=== PATIENT | female | born 1950 | race Caucasian/White ===

== ENCOUNTER 2021-08-27 10:25 | Emergency (ER) | payer MEDICARE, MEDICAID ==
[~2021-08-27] VITALS: Ht 167.6 cm; Wt 74.0 kg
--- NOTE | 2021-08-27 10:42 | PHYS DOC ---
Adult General HPI HPI Patient is a 71-year-old female presenting for dizziness. Onset was 26 hours prior to arrival without any known ingestion, trauma, ingestion or other exposure. Nothing known makes better or worse. She was passenger of a vehicle when she started feeling dizzy, describes it as just her head feels full and congested. Does admit recent URI symptoms, has had nasal congestion, rhinorrhea, postnasal drip and diarrhea. She has not had any fever, she is not vaccinated against COVID-19, denies any sick contacts and has not been tested for COVID-19 recently. She does have several risk factors for CVA such as uncontrolled type 2 diabetes but has no history of CAD or CVA. Presents today due to ongoing symptoms and concern for stroke Review of Systems Review of Systems Fourteen body systems of review of systems have been reviewed. See HPI for pertinent positives and negative responses, other guardado all other systems are negative, non-pertinent or non-contributory Physical Exam Physical Exam Constitutional: Well developed, well nourished, no acute distress, non-toxic appearance. HENT: Normocephalic, atraumatic, bilateral external ears normal, fluid present behind bilateral TMs without any obvious signs of infection such as loss of cone of light injection erythema or significant bulging, oropharynx moist with poor dentition globally and numerous missing teeth and postnasal drip present, no oral exudates, nose normal. Eyes: PERRLA, EOMI, conjunctiva normal, no discharge. Neck: Normal range of motion, no tenderness, supple, no stridor. Cardiovascular: Heart rate regular, sinus rhythm, no murmurs rubs or gallops Lungs & Thorax: Bilateral breath sounds clear to auscultation Abdomen: Bowel sounds normal, soft, no tenderness, no masses, no pulsatile masses. Nonsurgical abdomen, no peritoneal signs Skin: Warm, dry, no erythema, no rash. Back: No tenderness, no CVA tenderness. Extremities: No tenderness, no cyanosis, no clubbing, ROM intact, no edema. Neurologic: Alert and oriented X 3, cranial nerves II through XII intact, normal motor & sensory function, no focal deficits noted. Psychologic: Affect normal, judgement normal, mood normal. Current Patient Data Vital Signs Vital Signs Date Time Temp Pulse Resp B/P (MAP) Pulse Ox O2 Delivery O2 Flow Rate FiO2 10/14/21 10:39 97.9 85 16 149/70 (96) 98 Room Air Vital Signs Date Time Temp Pulse Resp B/P (MAP) Pulse Ox O2 Delivery O2 Flow Rate FiO2 08/27/21 10:39 97.9 85 16 149/70 (96) 98 Room Air Lab Results Laboratory Tests Test 08/27/21 11:22 White Blood Count 4.5 x10^3/uL Red Blood Count 4.32 x10^6/uL Hemoglobin 12.4 g/dL Hematocrit 38.5 % Mean Corpuscular Volume 89 fL Mean Corpuscular Hemoglobin 29 pg Mean Corpuscular Hemoglobin Concent 32 g/dL Red Cell Distribution Width 15.7 % Platelet Count 186 x10^3/uL Neutrophils (%) (Auto) 73 % Lymphocytes (%) (Auto) 18 % Monocytes (%) (Auto) 6 % Eosinophils (%) (Auto) 4 % Basophils (%) (Auto) 1 % Neutrophils # (Auto) 3.3 x10^3uL Lymphocytes # (Auto) 0.8 x10^3/uL Monocytes # (Auto) 0.2 x10^3/uL Eosinophils # (Auto) 0.2 x10^3/uL Basophils # (Auto) 0.0 x10^3/uL Sodium Level 138 mmol/L Potassium Level 3.5 mmol/L Chloride Level 101 mmol/L Carbon Dioxide Level 26 mmol/L Anion Gap 11 Blood Urea Nitrogen 13 mg/dL Creatinine 0.8 mg/dL Estimated GFR (Cockcroft-Gault) 70.3 BUN/Creatinine Ratio 16 Glucose Level 209 mg/dL Calcium Level 8.7 mg/dL Total Bilirubin 0.3 mg/dL Aspartate Amino Transf (AST/SGOT) 15 U/L Alanine Aminotransferase (ALT/SGPT) 19 U/L Alkaline Phosphatase 140 U/L Troponin I Quantitative < 0.017 ng/mL Total Protein 6.9 g/dL Albumin 3.1 g/dL Albumin/Globulin Ratio 0.8 EKG EKG EKG ordered and interpreted by myself at 1119 hrs. as sinus rhythm at 71 bpm, unremarkable intervals, no axis deviation, no acute ischemic findings, no STEMI Radiology/Procedures Radiology/Procedures EXAM: CHEST ONE VIEW. HISTORY: Dizziness. COMPARISON: None. FINDINGS: A frontal view of the chest is obtained. There are no confluent infiltrates. There is a calcified granuloma on the right. There is no pneumothorax or pleural effusion. The heart is not enlarged. IMPRESSION: 1. No confluent infiltrates. Electronically signed by: Meño Bradford MD (08/27/2021 11:21 AM) [id number] /////////////////////////////// EXAM: CT HEAD WITHOUT CONTRAST. HISTORY: Dizziness. TECHNIQUE: Computed tomography of the head was performed without intravenous contrast. One or more of the following individualized dose reduction techniques were utilized for this examination: 1. Automated exposure control. 2. Adjustment of the mA and/or kV according to patient size. 3. Use of iterative reconstruction technique. COMPARISON: None. FINDINGS: There is no intracranial hemorrhage. Hypoattenuation within the periventricular white matter indicates mild chronic microangiopathic change. Prominence of the lateral ventricles and hemispheric sulci indicates mild atrophy. The visualized paranasal sinuses appear clear. The orbits are unremarkable. The temporal bones are unremarkable. The calvarium reveals no suspicious lesions. IMPRESSION: 1. No acute intracranial findings. 2. Mild atrophy and chronic microangiopathic white matter change. Electronically signed by: Meño Bradford MD (08/27/2021 11:23 AM) [id number] Heart Score C/O Chest Pain: No HEART Score for Chest Pain: HEART Score for Chest Pain Response (Comments) Value History Slighlty/Non-Suspicious 0 ECG Normal 0 Age > 65 2 Risk Factors >3 Risk Factors or Hx CAD 2 Troponin < Normal Limit 0 Total 4 Risk Factors: Risk Factors: DM, Current or recent (<one month) smoker, HTN, HLP, family history of CAD, obesity. Risk Scores: Risk Factors: DM, Current or recent (<one month) smoker, HTN, HLP, family history of CAD, obesity. Course & Med Decision Making Course & Med Decision Making ABCs unremarkable. I disclosed entirety of ER findings and discussed most likely diagnosis of dizziness, likely related to viral labrynthitis. Other diagnoses were discussed with patient such as vertigo, ACS, ischemic stroke and other potential emergencies but all deemed less likely causes of patient's presentation. Plan of care discussed at length with need for close outpatient follow-up to review today's ER visit stressed. Strict return precautions were also discussed at length with good understanding verbalized by patient. Patient voiced understanding and agreement with the plan. Patient knows to come back for repeat evaluation if concerning signs or symptoms present prior to outpatient follow-up. Hemodynamically stable, ambulatory and well-appearing at time of disposition. Dragon Disclaimer Dragon Disclaimer This electronic medical record was generated, in whole or in part, using a voice recognition dictation system. NIH Stroke Scale: NIH Stroke Scale Response (Comments) Value Level of Consciousness: 0 Alert/Responsive 0 LOC Questions: 0 Answers both correctly 0 LOC Commands: 0 Performs both tasks 0 Best Gaze: 0 Normal 0 Visual: 0 No visual loss 0 Facial Palsy: 0 Normal, symmetrical 0 Motor - Left Arm 0 No drift 0 Motor - Right Arm 0 No drift 0 Motor - Left Leg 0 No drift 0 Motor: Right Leg 0 No drift 0 Limb Ataxia: 0 Absent 0 Sensory: 0 No loss 0 Best Language: 0 Normal 0 Dysathria: 0 Normal 0 Extinction and Inattention: 0 Normal 0 Total 0 Departure Departure: Impression: Primary Impression: Dizziness Additional Impressions: Viral syndrome Person under investigation for COVID-19 Referrals: MONIKA MARTIN MD (PCP) Additional Instructions: You were seen for dizziness. You should make sure to drink plenty of fluids. I t is unclear what caused your symptoms but your initial evaluation did not show any concerning symptoms or features. As disclosed, you are likely suffering from a viral syndrome inserted, especially because you are not vaccinated against COVID-19 you were tested with results pending. You should be notified of your results within the next 24 hours. In addition, such viral illness could cause your dizziness, this is called late bronchitis. Treatment of this is supportive, as disclosed you should take an antihistamine/daily allergy pill and consider use of intranasal spray such as Flonase or Afrin. Return to the ED immediately if you develop worsening symptoms, chest pain, shortness of breath, numbness, tingling, weakness, vision change, or any other new or concerning symptoms. You should follow up with your primary care doctor and potentially a neurologist in a few days to have your labs repeated and to be evaluated again. Problem Qualifiers SHANE BOWDEN DO Aug 27, 2021 10:42
--- NOTE | 2021-08-27 11:24 | RAD ---
EXAM: CHEST ONE VIEW. HISTORY: Dizziness. COMPARISON: None. FINDINGS: A frontal view of the chest is obtained. There are no confluent infiltrates. There is a calcified granuloma on the right. There is no pneumoth orax or pleural effusion. The heart is not enlarged. IMPRESSION: 1. No confluent infiltrates. Electronically signed by: Meño Bradford MD (08/27/2021 11:21 AM) [id number]
--- NOTE | 2021-08-27 11:26 | RAD ---
EXAM: CT HEAD WITHOUT CONTRAST. HISTORY: Dizziness. TECHNIQUE: Computed tomography of the head was performed without intravenous contrast. One or more of the following individualized dose reduction techniques were utilized for this examination: 1. Automated exposure control. 2. Adjustment of the mA and/or kV according to patient size. 3. Use of iterative reconstruction technique. COMPARISON: None. FINDINGS: There is no intracranial hemorrhage. Hypoattenuation within the periventricular white matte r indicates mild chronic microangiopathic change. Prominence of the lateral ventricles and hemispheri c sulci indicates mild atrophy. The visualized paranasal sinuses appear clear. The orbits are unremarkable. The temporal bones are un remarkable. The calvarium reveals no suspicious lesions. IMPRESSION: 1. No acute intracranial findings. 2. Mild atrophy and chronic microangiopathic white matter change. Electronically signed by: Meño Bradford MD (08/27/2021 11:23 AM) [id number]
[2021-08-27 11:34] VITALS: BP 123/78
[2021-08-27 11:44] LABS: BASO % 1 % (0-3); EOS # 0.2 x10^3/uL (0.0-0.7); EOS % 4 % (0-3); HEMATOCRIT 38.5 % (36.0-47.0); HEMOGLOBIN 12.4 g/dL (12.0-15.5); LYMPH # 0.8 x10^3/uL (1.0-4.8); LYMPH % 18 % (24-48); MEAN CORPUSCULAR HEMOGLOBIN 29 pg (25-35); MEAN CORPUSCULAR HGB CONC 32 g/dL (31-37); MEAN CORPUSCULAR VOLUME 89 fL (79-100); MONO # 0.2 x10^3/uL (0.0-1.1); MONO % 6 % (0-9); NEUT # 3.3 x10^3uL (1.8-7.7); NEUT % 73 % (31-73); PLATELET COUNT 186 x10^3/uL (140-400); RED BLOOD COUNT 4.32 x10^6/uL (3.50-5.40); RED CELL DISTRIBUTION WIDTH 15.7 % (11.5-14.5); WHITE BLOOD COUNT 4.5 x10^3/uL (4.0-11.0)
[2021-08-27 12:00] LABS: CALCIUM 8.7 mg/dL (8.5-10.1); CREATININE 0.8 mg/dL (0.6-1.0); GFR 70.3; POTASSIUM 3.5 mmol/L (3.5-5.1)
[2021-08-27 12:04] LABS: ALBUMIN 3.1 g/dL (3.4-5.0); ALBUMIN/GLOBULIN RATIO 0.8 (1.0-1.7); TOTAL BILIRUBIN 0.3 mg/dL (0.2-1.0); TOTAL PROTEIN 6.9 g/dL (6.4-8.2)
--- NOTE | 2021-08-27 13:54 | EKG ---
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
== END 2021-08-27 12:33 | disposition home or self-care (01) ==
LOC: ER 10:25
DX: R42 Dizziness and giddiness (principal); B34.9 Viral infection, unspecified; Z20.822 Contact with and (suspected) exposure to COVID-19
CPT/HCPCS: 36415; 70450; 71045; 80053; 84484; 85025; 93005; 99284; C9803; U0003

== ENCOUNTER 2021-12-13 18:58 | Emergency (ER) | payer OTHER, MEDICAID ==
[~2021-12-13] VITALS: Ht 167.6 cm; Wt 74.0 kg
[2021-12-13 19:15] VITALS: BP 133/70
--- NOTE | 2021-12-13 19:44 | PHYS DOC ---
Past History Past Surgical History: Other Additional Past Surgical Histo: hip (ИРИНА SPARROW APRN) Alcohol Use: None (ИРИНА SPARROW APRN) General Adult EDM: Chief Complaint: ABDOMINAL PAIN HPI: HPI: Patient is a 71-year-old female who presents to the emergency department for right upper quadrant pain that is been intermittent since this morning. She rates it 9 out of 10. She has been taking Tylenol. The pain does not radiate. She is also reporting diarrhea. She denies any nausea, vomiting, bloody stools, urinary symptoms, fevers. She has a history of hypertension, diabetes and kidney stones. (ИРИНА SPARROW APRN) Review of Systems: Review of Systems: Constitutional: negative unless reported in HPI Eyes: negative unless reported in HPI HENT: negative unless reported in HPI Respiratory: negative unless reported in HPI Cardiovascular: negative unless reported in HPI GI: negative unless reported in HPI : negative unless reported in HPI Musculoskeletal: negative unless reported in HPI Integument: negative unless reported in HPI Neurologic: negative unless reported in HPI Endocrine: negative unless reported in HPI Lymphatic: negative unless reported in HPI Psychiatric: negative unless reported in HPI (ИРИНА SPARROW APRN) Current Medications: Current Meds: Current Medications Medications (Trade) Dose Ordered Sig/Vianey Start Time Stop Time Status Last Admin Dose Admin Fentanyl Citrate (Fentanyl 2ml Vial) 50 mcg 1X ONCE 12/13/21 20:00 12/13/21 20:01 Iohexol (Omnipaque 300 Mg/ml) 75 ml 1X ONCE 12/13/21 20:00 12/13/21 20:01 Sodium Chloride 1,000 ml @ 1,000 mls/hr Q1H 12/13/21 20:00 12/13/21 20:59 (ИРИНА SPARROW APRN) Allergies: Allergies: Allergies Coded Allergies Type Severity Reaction Last Updated Verified No Known Drug Allergies 12/13/21 No (ИРИНА SPARROW APRN) Physical Exam: PE: Constitutional: Well developed, well nourished, no acute distress, non-toxic appearance. [] HENT: Normocephalic, atraumatic, bilateral external ears normal, oropharynx moist, no oral exudates, nose normal. [] Eyes: PERRL, EOMI, conjunctiva normal, no discharge. [] Neck: Normal range of motion, no stridor Cardiovascular:Heart rate regular rhythm, no murmur [] Lungs & Thorax: Bilateral breath sounds clear to auscultation [] Abdomen: Bowel sounds normal, soft, right upper quadrant and epigastric tenderness with palpation, obese abdomen, no rigidity or rebound tenderness, no guarding no masses, no pulsatile masses. [] Skin: Warm, dry, no erythema, no rash. [] Back: No tenderness, no CVA tenderness. [] Extremities: No tenderness, no cyanosis, no clubbing, ROM intact, no edema. [] Neurologic: Alert and oriented X 3, normal motor function, normal sensory function, no focal deficits noted. [] Psychologic: Affect normal, judgement normal, mood normal. [] (ИРИНА SPARROW APRN) Current Patient Data: Labs: Laboratory Tests Test 12/13/21 19:50 12/13/21 20:40 Urine Collection Type Clean catch Urine Color Yellow Urine Clarity Clear Urine pH 5.5 Urine Specific [place] 1.020 Urine Protein Neg Urine Glucose (UA) >=1000 mg/dL Urine Ketones (Stick) Trace mg/dL Urine Blood Neg Urine Nitrite Neg Urine Bilirubin Neg Urine Urobilinogen Dipstick 0.2 mg/dL Urine Leukocyte Esterase Neg Urine RBC 0 /HPF Urine WBC 0 /HPF Urine Squamous Epithelial Cells Few /LPF Urine Bacteria 0 /HPF White Blood Count 4.2 x10^3/uL Red Blood Count 4.16 x10^6/uL Hemoglobin 12.3 g/dL Hematocrit 38.1 % Mean Corpuscular Volume 92 fL Mean Corpuscular Hemoglobin 29 pg Mean Corpuscular Hemoglobin Concent 32 g/dL Red Cell Distribution Width 15.7 % Platelet Count 200 x10^3/uL Neutrophils (%) (Auto) 75 % Lymphocytes (%) (Auto) 15 % Monocytes (%) (Auto) 9 % Eosinophils (%) (Auto) 2 % Basophils (%) (Auto) 0 % Neutrophils # (Auto) 3.1 x10^3uL Lymphocytes # (Auto) 0.6 x10^3/uL Monocytes # (Auto) 0.4 x10^3/uL Eosinophils # (Auto) 0.1 x10^3/uL Basophils # (Auto) 0.0 x10^3/uL Sodium Level 137 mmol/L Potassium Level 4.3 mmol/L Chloride Level 101 mmol/L Carbon Dioxide Level 27 mmol/L Anion Gap 9 Blood Urea Nitrogen 18 mg/dL Creatinine 1.0 mg/dL Estimated GFR (Cockcroft-Gault) 54.3 BUN/Creatinine Ratio 18 Glucose Level 211 mg/dL Calcium Level 9.0 mg/dL Total Bilirubin 0.4 mg/dL Aspartate Amino Transf (AST/SGOT) 14 U/L Alanine Aminotransferase (ALT/SGPT) 19 U/L Alkaline Phosphatase 133 U/L Total Protein 6.9 g/dL Albumin 3.2 g/dL Albumin/Globulin Ratio 0.9 Lipase 82 U/L Current Medications Medications (Trade) Dose Ordered Sig/Vianey Route PRN Reason Start Time Stop Time Status Last Admin Dose Admin Sodium Chloride 1,000 ml @ 1,000 mls/hr Q1H IV 12/13/21 20:00 12/13/21 20:59 DC 12/13/21 20:47 Fentanyl Citrate (Fentanyl 2ml Vial) 50 mcg 1X ONCE IVP 12/13/21 20:00 12/13/21 20:01 DC 12/13/21 20:47 Iohexol (Omnipaque 300 Mg/ml) 75 ml 1X ONCE IV 12/13/21 20:00 12/13/21 20:01 DC 12/13/21 21:38 (ИРИНА SPARROW APRN) EKG: EKG: [] (ИРИНА SPARROW APRN) Radiology/Procedures: Radiology/Procedures: [] (ИРИНА SPARROW APRN) Radiology/Procedures: [place] [address] IMAGING REPORT Signed PATIENT: NICHOLE JUAN ACCOUNT: [id number] : 1950 LOCATION: ER AGE: 71 SEX: F EXAM STATUS: REG ER ORD. PHYSICIAN: ИРИНА SPARROW APRN REASON: EPIGASTRIC/RUQ PAIN Omni 300 75cc PROCEDURE: CT ABD PELV W/ IV CONTRST ONLY CT ABDOMEN+PELVIS W History: Reason: EPIGASTRIC/RUQ PAIN Omni 300 75cc / Spl. Instructions: / History: Technique: After the administration of intravenous contrast, CT imaging was performed of the abdomen and pelvis. Multiplanar images are reviewed. Exposure: One or more of the following individualized dose reduction techniques were utilized for this examination: 1. Automated exposure control 2. Adjustment of the mA and/or kV according to patient size 3. Use of iterative reconstruction technique. Comparison: None Findings: Lower chest: 5 mm left lower lobe pulmonary nodule (series 2 image 6). Abdomen and pelvis: Numerous hepatic hypodensities largest within the right hepatic lobe measures 4.1 x 4.3 cm. The spleen, adrenal glands, and gallbladder are unremarkable. No biliary ductal dilatation. Fatty infiltration of the pancreas. Hyperdense left mid renal lesion measures 1.6 x 1.4 cm. Additional left renal hypodensities, likely cysts. Small right renal hypodensities. No hydronephrosis. Punctate nonobstructing right inferior renal calculus. Decompressed urinary bladder. Colonic diverticulosis. Decompressed colon. Normal appendix. No evidence of bowel obstruction. Duodenal diverticulum's. No pathologic lymphadenopathy. No ascites. Ill-defined hypodensity within the lower uterine segment/cervical region measure s 2.0 x 2.0 cm. Evaluation is degraded due to streak artifact from the left hip arthroplasty. Small fat-containing umbilical hernia. Mild atheromatous plaque within the nonaneurysmal abdominal aorta and branch vessels. Bones: Left hip arthroplasty. Impression: 1. No acute abdominal or pelvic pathology. 2. Ill-defined hypodensity within the lower uterus/cervical region. Recommend ultrasound to further assess. 3. Hyperdense left renal lesion, may represent complicated cyst. Ultrasound can confirm. 4. Numerous hypodense hepatic lesions, most likely cysts. 5. Left lower lobe pulmonary nodule. Recommend one-year follow-up chest CT without contrast if high risk. 6. Colonic diverticulosis. Electronically signed by: Alkes Salcedo DO (12/13/2021 10:01 PM) [facility] DICTATED AND SIGNED BY: ALEKS SALCEDO DO DATE: 12/13/212151 CC: EDISON JIMENEZ MD; MONIKA MARTIN MD; ИРИНА SPARROW SALES ENGAGEMENT EXECUTIVE ~MTH0 0 (EDISON JIMENEZ MD) Heart Score: C/O Chest Pain: N/A Risk Factors: Risk Factors: DM, Current or recent (<one month) smoker, HTN, HLP, family history of CAD, obesity. Risk Scores: Score 0 - 3: 2.5% MACE over next 6 weeks - Discharge Home Score 4 - 6: 20.3% MACE over next 6 weeks - Admit for Clinical Observation Score 7 - 10: 72.7% MACE over next 6 weeks - Early Invasive Strategies (ИРИНА SPARROW APRN) Course & Med Decision Making: Course & Med Decision Making Pertinent Labs and Imaging studies reviewed. (See chart for details) [] Patient presents to the emergency department for right upper quadrant and epigastric pain that started this morning. Patient is also reporting diarrhea. Work-up in the ER consisted of blood work, urinalysis and CT imaging of abdomen and pelvis. Patient treated with IV fluids and pain medication. Patient urinalysis did not show a urinary tract infection. She had normal CBC, lipase, blood sugar was 211 remainder of CMP was unremarkable. CT scan of abdomen and pelvis is pending at this time. I discussed patients case with supervising physician and he will assume patient care at this time due to shift change 2150 (ИРИНА SPARROW APRN) Course & Med Decision Making See Prince chart for details prior shift change. Pt. declines rapid flu and covid testing. Patient to stay on clear fluids for the next couple days to allow bowel rest push fluids such as apple juice, grape juice, Jell-O, 7-Up, sweet tea, Pedialyte, Gatorade,. Take ibuprofen and Tylenol as needed for discomfort. Follow-up primary care review ED record. Return if any concerns. Have Dr. Martin review ED record. My use a small amount of Pepto-Bismol [id number] for diarrhea. May take Zofran 8 mg up to 4 times a day for active vomiting and nausea. Impression: 1. Abdomen Pain 2. Acute Gastroenteritis 3. DM = 211 4. Pulmonary nodule-plan follow-up in 1 year 5. Renal cyst 6. Uterine cyst 7. Hepatic cysts 8. Viral syndrome (EDISON JIMENEZ MD) Dragon Disclaimer: Dragon Disclaimer: This electronic medical record was generated, in whole or in part, using a voice recognition dictation system. (ИРИНА SPARROW APRN) Departure Departure: Referrals: MONIKA MARTIN MD (PCP) Scripts Ondansetron Hcl (ONDANSETRON HCL) 8 Mg Tablet 8 MG PO QIDPRN PRN for NAUSEA/VOMITING, #30 TAB Prov: EDISON JIMENEZ MD 12/14/21 Dragon Disclaimer This chart was dictated in whole or in part using Voice Recognition software in a busy, high-work load, and often noisy Emergency Department environment. It may contain unintended and wholly unrecognized errors or omissions. (EDISON JIMENEZ MD) Attending Signature Attending Signature I have participated in the care of this patient and I have reviewed and agree with all pertinent clinical information above including history, exam, and recommendations. (EDISON JIMENEZ MD) ИРИНА SPARROW APRN Dec 13, 2021 19:44 EDISON JIMENEZ MD Dec 13, 2021 21:59
[2021-12-13] MEDS ORDERED: IV NORMAL SALINE 1,000ML 1,000 ML IV SCH (20:00)
[2021-12-13] MEDS ORDERED: IOHEXOL 300 MG/ML 75 ML VIAL. IV ONE (20:00)
[2021-12-13 20:55] LABS: BACTERIA,URINE 0 /HPF (0-FEW); BILIRUBIN,URINE NEG (NEG); CLARITY,URINE CLEAR; COLOR,URINE YELLOW; GLUCOSE,URINE >=1000 mg/dL (NEG); NITRITE,URINE NEG (NEG); RBC,URINE 0 /HPF (0-2); SQUAMOUS EPITHELIAL CELL,UR FEW /LPF; UROBILINOGEN,URINE 0.2 mg/dL (0.2 mg/dL); WBC,URINE 0 /HPF (0-4)
[2021-12-13 21:24] LABS: BASO % 0 % (0-3); EOS # 0.1 x10^3/uL (0.0-0.7); EOS % 2 % (0-3); HEMATOCRIT 38.1 % (36.0-47.0); HEMOGLOBIN 12.3 g/dL (12.0-15.5); LYMPH # 0.6 x10^3/uL (1.0-4.8); LYMPH % 15 % (24-48); MEAN CORPUSCULAR HEMOGLOBIN 29 pg (25-35); MEAN CORPUSCULAR HGB CONC 32 g/dL (31-37); MEAN CORPUSCULAR VOLUME 92 fL (79-100); MONO # 0.4 x10^3/uL (0.0-1.1); MONO % 9 % (0-9); NEUT # 3.1 x10^3uL (1.8-7.7); NEUT % 75 % (31-73); PLATELET COUNT 200 x10^3/uL (140-400); RED BLOOD COUNT 4.16 x10^6/uL (3.50-5.40); RED CELL DISTRIBUTION WIDTH 15.7 % (11.5-14.5); WHITE BLOOD COUNT 4.2 x10^3/uL (4.0-11.0)
[2021-12-13 21:30] LABS: GFR 54.3; POTASSIUM 4.3 mmol/L (3.5-5.1)
[2021-12-13 21:36] LABS: ALBUMIN 3.2 g/dL (3.4-5.0); ALBUMIN/GLOBULIN RATIO 0.9 (1.0-1.7); TOTAL BILIRUBIN 0.4 mg/dL (0.2-1.0); TOTAL PROTEIN 6.9 g/dL (6.4-8.2)
--- NOTE | 2021-12-13 22:03 | RAD ---
CT ABDOMEN+PELVIS W History: Reason: EPIGASTRIC/RUQ PAIN Omni 300 75cc / Spl. Instructions: / History: Technique: After the administration of intravenous contrast, CT imaging was performed of the abdomen and pelvis. Multiplanar images are reviewed. Exposure: One or more of the following individualized dose reduction techniques were utilized for thi s examination: 1. Automated exposure control 2. Adjustment of the mA and/or kV according to patient size 3. Use of iterative reconstruction technique. Comparison: None Findings: Lower chest: 5 mm left lower lobe pulmonary nodule (series 2 image 6). Abdomen and pelvis: Numerous hepatic hypodensities largest within the right hepatic lobe measures 4.1 x 4.3 cm. The spleen, adrenal glands, and gallbladder are unremarkable. No biliary ductal dilatation . Fatty infiltration of the pancreas. Hyperdense left mid renal lesion measures 1.6 x 1.4 cm. Additional left renal hypodensities, likely c ysts. Small right renal hypodensities. No hydronephrosis. Punctate nonobstructing right inferior rafal l calculus. Decompressed urinary bladder. Colonic diverticulosis. Decompressed colon. Normal appendix. No evidence of bowel obstruction. Duoden al diverticulum's. No pathologic lymphadenopathy. No ascites. Ill-defined hypodensity within the lower uterine segment/cervical region measures 2.0 x 2.0 cm. Evalu ation is degraded due to streak artifact from the left hip arthroplasty. Small fat-containing umbilic al hernia. Mild atheromatous plaque within the nonaneurysmal abdominal aorta and branch vessels. Bones: Left hip arthroplasty. Impression: 1. No acute abdominal or pelvic pathology. 2. Ill-defined hypodensity within the lower uterus/cervical region. Recommend ultrasound to further assess. 3. Hyperdense left renal lesion, may represent complicated cyst. Ultrasound can confirm. 4. Numerous hypodense hepatic lesions, most likely cysts. 5. Left lower lobe pulmonary nodule. Recommend one-year follow-up chest CT without contrast if high risk. 6. Colonic diverticulosis. Electronically signed by: Aleks Salcedo DO (12/13/2021 10:01 PM) [facility] [place]
[2021-12-14] MEDS ORDERED: ONDA-85 PO (00:06)
== END 2021-12-14 00:25 | disposition home or self-care (01) ==
LOC: ER 18:58
DX: K52.9 Noninfective gastroenteritis and colitis, unspecified (principal); K57.30 Diverticulosis of large intestine without perforation or abscess without bleeding; R91.1 Solitary pulmonary nodule; N85.8 Other specified noninflammatory disorders of uterus; N28.1 Cyst of kidney, acquired; K76.89 Other specified diseases of liver; B34.9 Viral infection, unspecified; E11.9 Type 2 diabetes mellitus without complications
CPT/HCPCS: 36415; 74177; 80053; 81001; 83690; 85025; 96361; 96374; 99285; J3010; J7030; Q9967